=== PATIENT | female | born 1965 | race Asian ===

== ENCOUNTER → 2016-08-03 | Outpatient (CLI) | payer BC | LOC: BRMIMAGING 12:49 | DX: Z12.31 Encounter for screening mammogram for malignant neoplasm of breast (principal) | CPT/HCPCS: G0202 ==

== ENCOUNTER → 2017-08-07 | Outpatient (CLI) | payer BC | LOC: BRMIMAGING 08:15 | PROVIDERS: ATTEND Physician Assistant Medical | DX: Z12.31 Encounter for screening mammogram for malignant neoplasm of breast (principal) ==